=== PATIENT | female | born 2000 | race African-American/Black ===

== ENCOUNTER 2022-05-20 15:42 | Outpatient (REF) | payer OTHER, MEDICAID, SELFPAY ==
[2022-05-21 09:07] LABS: H Pylori Breath Test Negative (Negative)
== END 2022-05-20 15:43 | disposition home or self-care (01) ==
LOC: HO.LNP 15:42
PROVIDERS: Visit Provider Physician Assistant
DX: A04.8 Other specified bacterial intestinal infections (principal)
CPT/HCPCS: 83013

== ENCOUNTER 2022-07-20 13:29 | Outpatient (REF) | payer OTHER, MEDICAID, SELFPAY ==
[2022-07-20 13:49] LABS: MANUAL DIFF FLAG NO
[2022-07-20 14:03] LABS: Basophils Percent Auto 0.6 % (0-2); Eosinophils Percent Auto 0.8 % (0-4); Hematocrit 37.6 % (37.0-47.0); Hemoglobin 12.1 g/dl (12.0-16.0); Imm Gran Abs Auto 0.01 X10*3/uL (0.00-0.03); Imm Gran Pct Auto 0.2 % (0.0-0.4); Lymphocytes Percent Auto 41.2 % (20-40); Mean Corpuscular HGB Conc 32.2 g/dl (31.0-35.0); Mean Corpuscular Hemoglobin 30.9 pg (27.0-33.0); Mean Corpuscular Volume 95.9 fL (80.0-98.0); Mean Platelet Volume 10.6 fL (9.4-12.3); Monocytes Absolute Auto 0.3 X10*3/uL (0.1-1.2); Monocytes Percent Auto 6.6 % (2-11); Neutrophils Absolute Auto 2.5 x10*3/uL (2.0-8.3); Neutrophils Percent Auto 50.6 % (45-73); Platelet Count 239 X10*3/uL (160-400); Red Blood Count 3.92 X10*6/uL (4.20-5.50); White Blood Count 4.9 X10*3/uL (4.8-10.8)
[2022-07-20 14:20] LABS: Alanine Aminotransferase 17 U/L (0-31); Albumin Level 4.4 g/dL (3.5-5.0); Alkaline Phosphatase 73 U/L (39-117); Anion Gap 12 (12-20); Aspartate Amino Transferase 20 U/L (5-31); Bilirubin Total 0.7 mg/dL (0.0-1.0); Blood Urea Nitrogen 8 mg/dL (9-16); Calcium 9.9 mg/dL (8.4-10.2); Carbon Dioxide 26 mmol/L (22-29); Chloride 107 mmol/L (96-108); Estimated Glomerular Filt Rate > 60; Glucose Random 91 mg/dL (60-115); Potassium 4.3 mmol/L (3.3-5.1); Sodium 141 mmol/L (135-145); Total Protein 7.5 g/dL (6.5-8.0)
[2022-07-20 14:45] LABS: Thyroid Stimulating Hormone 1.15 uIU/mL (0.32-4.0)
[2022-07-24 17:31] LABS: Vitamin D 25-OH, D2 <4 ng/mL; Vitamin D 25-OH, D3 19 ng/mL; Vitamin D 25-OH, Total 19 ng/mL (30-100)
== END 2022-07-20 13:30 | disposition home or self-care (01) ==
LOC: HO.LAB 13:29
PROVIDERS: Visit Provider Physician Assistant
DX: K59.09 Other constipation (principal); K58.9 Irritable bowel syndrome, unspecified; R10.9 Unspecified abdominal pain; G89.29 Other chronic pain
CPT/HCPCS: 36415; 80053; 82306; 84443; 85025

== ENCOUNTER 2022-07-22 08:16 | Outpatient (REF) | payer OTHER, MEDICAID, SELFPAY ==
--- NOTE | ~2022-07-22 | CT_ITS ---
EXAMINATION: CT ABDOMEN AND PELVIS WITH CONTRAST CLINICAL INFORMATION: Abdominal pain COMPARISON: None TECHNIQUE: Multidetector volumetric images were obtained from the superior aspect of the liver through the pubic symphysis following administration 85 mL of Omnipaque 350 intravenous contrast. Sagittal and coronal reformatted images were obtained on the technologist's workstation. Oral contrast: Yes This CT examination was performed using dose optimization techniques as appropriate, variously including the following: *Automated exposure control *Adjustment of mA and/or kV according to patient size (this includes techniques or standardized protocols for targeted exams where dose is matched to indication/reason for exam; i.e. extremities or head) *Use of iterative reconstruction technique DLP: 3 6 by mGy-cm FINDINGS: LUNG BASES: The visualized lung bases are unremarkable. LIVER, GALLBLADDER, AND BILIARY TREE: The liver is normal in size, shape, and attenuation. No focal hepatic lesion or biliary ductal dilatation is present. The gallbladder is unremarkable with no evidence of radiopaque gallstones, gallbladder wall thickening, or obvious pericholecystic inflammatory changes. PANCREAS: Unremarkable. SPLEEN: Unremarkable. ADRENAL GLANDS: Unremarkable. KIDNEYS AND URETERS: The kidneys are normal in size, shape, and attenuation. No hydronephrosis, hydroureter, or calculi seen. There is a 5 mm low-attenuation lesion in the central left kidney probably representing a small cyst. No imaging follow-up. No perinephric stranding. BLADDER: Unremarkable. GASTROINTESTINAL TRACT: There is stool throughout the colon questionable for mild constipation. The small and large bowel are otherwise unremarkable. The appendix is unremarkable. ABDOMINAL WALL: No significant hernia is appreciated. LYMPH NODES: Normal. VASCULAR: Unremarkable. PELVIC VISCERA: Unremarkable. OSSEOUS STRUCTURES: Unremarkable. CT/CT abdomen pelvis w IV con IMPRESSION: No acute findings. Probable small left renal cyst. Stool throughout the colon suggestive of mild patient. Fleischner guidelines were followed.
[2022-07-22] MEDS: iohexoL 350 MG/ML 100 ML INFUS..BTL 85 ML IV (09:02)
== END 2022-07-22 08:17 | disposition home or self-care (01) ==
LOC: HO.CT 08:16
PROVIDERS: PCP Internal Medicine; Visit Provider Physician Assistant
DX: R10.9 Unspecified abdominal pain (principal); G89.29 Other chronic pain
CPT/HCPCS: 74177; Q9967

== ENCOUNTER → 2022-11-22 08:56 | Outpatient (BNVA) | payer OTHER, MEDICAID, SELFPAY | PROVIDERS: PCP Internal Medicine; Visit Provider Physician Assistant | DX: Z13.89 Encounter for screening for other disorder (principal) ==

== ENCOUNTER 2024-09-18 14:57 | Outpatient (AMB) | payer OTHER, SELFPAY ==
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
[2024-09-18 15:04] VITALS: BP 105/59; PULSE 78; BMI 26.4
== END 2024-09-18 15:34 | disposition home or self-care (01) ==
PROVIDERS: PCP Internal Medicine; Visit Provider Internal Medicine
DX: K58.9 Irritable bowel syndrome, unspecified (principal); K59.09 Other constipation
CPT/HCPCS: 99213

== ENCOUNTER 2025-01-17 14:58 | Outpatient (AMB) | payer OTHER, SELFPAY ==
--- OUTSIDE RECORDS SUMMARY | 2025-01-17 15:00 | XMS_ITS | Clinical Summary ---
Author Organization [facility] Address [address] [place] [address] Care Team Providers Care Restaurant Busser Name Role Phone Unavailable Primary Care Provider Unavailabl e Social History Tobacco Use Types Packs/Day Years Used Date Smoking Tobacco: Never Assessed Comments Unknown Sex and Gender Information Value Date Recorded Sex Assigned at Not on file Legal Sex Female 2:50 AM EST Gender Identity Not on file Sexual Orientation Not on file Plan of Treatment Health Maintenance Due Date Last Done Comments HPV Vaccines (1 - 3-dose series) 2014 DTaP,Tdap,and Td Vaccines (1 - Tdap) 2018 Hepatitis B Vaccines (1 of 3 - 19+ 3-dose series) 2018 Cervical Cancer Screening: P ap Smear 2020 COVID-19 Vaccine ( - 2023-2 5 season) 2024 Influenza Vaccine (Season Ended) 2025 HIB Vaccines Aged Out No longer eligi ble based on patient's age to complete this topic Hepatitis A Vaccines Aged Out No long er eligible based on patient's age to complete this topic IPV Vaccines Aged Out No longer eligi ble based on patient's age to complete this topic MMR Vaccines Aged Out No longer eligi ble based on patient's age to complete this topic Meningococcal ACWY Vaccine Aged Out N o longer eligible based on patient's age to complete this topic Meningococcal B Vaccine Aged Out No l onger eligible based on patient's age to complete this topic Pneumococcal Vaccine: Pediat rics (0 to 5 Years) and At-Risk Patients (6 to 64 Years) Aged Out No longer eligible b ased on patient's age to complete this topic RSV Immunization Patients Un michael 20 months Aged Out No longer eligible b ased on patient's age to complete this topic Varicella Vaccines Aged Out No longer eligible based on patient's age to complete this topic
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
[2025-01-17 15:02] VITALS: BP 107/56; PULSE 75; BMI 26.0
== END 2025-01-17 15:36 | disposition home or self-care (01) ==
LOC: HO.HGI 14:58
PROVIDERS: PCP Internal Medicine; Visit Provider Internal Medicine
DX: K58.9 Irritable bowel syndrome, unspecified (principal); K59.09 Other constipation; R13.10 Dysphagia, unspecified
CPT/HCPCS: 99213

== ENCOUNTER → 2025-01-17 14:58 | Outpatient (BNVA) | payer OTHER, SELFPAY | PROVIDERS: PCP Internal Medicine; Visit Provider Internal Medicine ==

== ENCOUNTER 2025-04-21 09:51 | Outpatient (AMB) | payer OTHER, SELFPAY ==
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
--- OUTSIDE RECORDS SUMMARY | 2025-04-21 10:37 | XMS_ITS | Clinical Summary ---
Author Organization [facility] Address [address] [place] [address] Care Team Providers Care Front Office Medical Assistant Name Role Phone Unavailable Primary Care Provider [...] Screening: P ap Smear 2020 COVID-19 Vaccine (1 - 2023-2 5 season) 2024 Depression Screening 09/04/2024 Influenza Vaccine (#1) 2025 HIB Vaccines Aged Out No longer [...] 5 Years) and At-Risk Patients (6 to 49 Years) Aged Out No longer eligible b ased on patient's age to complete this topic RSV Immunization Patients Un michael 20 months Aged Out No longer eligible b ased on patient's age to complete this topic Varicella Vaccines Aged Out No longer eligible based on patient's age to complete this topic
== END 2025-04-21 13:25 | disposition home or self-care (01) ==
LOC: HO.HGI 09:51
PROVIDERS: PCP Internal Medicine; Visit Provider Internal Medicine
DX: K58.9 Irritable bowel syndrome, unspecified (principal); K59.09 Other constipation; R13.10 Dysphagia, unspecified
CPT/HCPCS: 99213

== ENCOUNTER 2025-05-07 08:45 | Outpatient (REF) | payer OTHER, SELFPAY ==
--- NOTE | ~2025-05-07 | FL_ITS ---
EXAMINATION: XR FLUOROSCOPY BARIUM SWALLOW WITH AIR CLINICAL INFORMATION: GERD type symptoms, dysphagia to pills. Feels like things get stuck in esophagus. COMPARISON: None TECHNIQUE: Fluoroscopic air contrast barium swallow examination was performed utilizing standard techniques with thin and thick barium and effervescent granules. Numerous spot images were obtained. Several fluoroscopic image hold cine sequences were also obtained. FINDINGS: BARIUM SWALLOW: Lateral cine images of the oropharynx and hypopharynx demonstrate normal swallow mechanism with normal epiglottic inversion and soft palate elevation. No laryngeal penetration, glottic or subglottic aspiration identified. No nasopharyngeal reflux present. Hypopharyngeal structures appear normal without evidence of mass or diverticulum. There was no significant cricopharyngeal achalasia. Dual and single contrast images of the esophagus demonstrate normal caliber, contour, and mucosal pattern. No evidence of stricture, mass, or ulcerations identified. Esophageal peristalsis was mildly disordered. No evidence of hiatus hernia identified. There was significant gastroesophageal reflux noted during the examination to the level of the thoracic inlet. Dual contrast and single contrast images of the stomach demonstrated normal contour. No evidence of mass or gross ulceration. There was mild diffuse thickening of the areae gastricae present. Normal gastric rugal folds. Contrast freely passed into the gastric antrum and duodenal bulb without delay. FLUOROSCOPY TIME: 1 minute, 51 seconds Number of Spot Images:10 Number of cines obtained: 3 DOSE AREA PRODUCT: 2382 uGy-m2 (microgray-meter squared) FL/FL barium swallow with air IMPRESSION: 1. No evidence of hiatus hernia. 2. Episodic gastroesophageal reflux present to the level of the thoracic inlet. 3. Mildly disordered esophageal peristalsis. 4. Mild thickening of the area gastricae of the stomach noted, possibly representing mild gastritis. Recommend correlating with EGD. Electronically signed by: Nicholas Gill MD 05/07/2025 09:57 AM EDT RP
--- OUTSIDE RECORDS SUMMARY | 2025-05-07 09:12 | XMS_ITS | Clinical Summary ---
Author Organization [facility] Address [address] [place] [address] Care Team Providers Care Telephone Sex Worker Name Role Phone Unavailable Primary Care Provider [...] Cervical Cancer Screening: P ap Smear 2020 Depression Screening 09/04/2024 COVID-19 Vaccine ( - 2023-2 5 season) 2025 Influenza Vaccine (#1) 2025 HIB Vaccines Aged [...]
== END 2025-05-07 08:46 | disposition home or self-care (01) ==
LOC: HO.XRAY 08:45
PROVIDERS: PCP Internal Medicine; Visit Provider Internal Medicine
DX: R13.10 Dysphagia, unspecified (principal)
CPT/HCPCS: 74221

== ENCOUNTER → 2025-05-07 08:47 | Outpatient (BNV) | payer OTHER, SELFPAY | PROVIDERS: PCP Internal Medicine; Visit Provider Radiology Diagnostic Radiology | DX: K21.9 Gastro-esophageal reflux disease without esophagitis (principal) | CPT/HCPCS: 74221 ==

== ENCOUNTER 2025-06-11 09:06 | Outpatient (AMB) | payer OTHER, SELFPAY ==
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
[2025-06-11 09:11] VITALS: BP 127/66; PULSE 93; BMI 27.0
== END 2025-06-11 10:09 | disposition home or self-care (01) ==
LOC: HO.HGI 09:07
PROVIDERS: PCP Internal Medicine; Visit Provider Internal Medicine
DX: K58.9 Irritable bowel syndrome, unspecified (principal); K59.09 Other constipation; R13.10 Dysphagia, unspecified
CPT/HCPCS: 99214

== ENCOUNTER 2025-08-12 08:53 | Day surgery (SDC) | payer OTHER, SELFPAY ==
--- NOTE | 2025-08-08 11:59 | HO.ANESPROP2 ---
Documented by User: Tamela Lara NP 08/08/25 11:59 HPI - Anesthesia Eval Consult details Narrative: 24yo F for Upper Endoscopy PMF Active Problems Active Problems: All Active Problems Pill dysphagia (Acute) Irritable bowel syndrome (Acute) Vitamin D deficiency, unspecified (Acute) Chronic abdominal pain (Acute) Chronic constipation (Acute) Acid reflux (Acute) Past Medical History Medical History IBS (irritable bowel syndrome) GERD (gastroesophageal reflux disease) Seasonal allergies Pill dysphagia Constipation Migraines ADD (attention deficit disorder) Adjustment disorder with anxiety Family History Family History Father HTN (hypertension) Diabetes Sister Gastroparesis Maternal Grandmother CHT (congenital hypothyroidism) Emphysema lung COPD (chronic obstructive pulmonary disease) Asthma Surgical History Surgical History H/O wisdom tooth extraction Social History Social History Household Members: Family Alcohol intake: current Alcohol intake frequency: a few times a week Patient Tobacco Use Status: Never used Tobacco Use of substances other than those prescribed or required for medical reasons: No Are you DNR?: No Advance Directives: No Advance Directives Information Provided: Yes Current occupational status: employed Current occupation: [employer] Allergies Allergy/AdvReac Type Severity Reaction Status Date / Time No Known Allergies Allergy Verified 08/12/25 09:49 Home Medications ?Medication ?Instructions ?Recorded ?Confirmed ?Last Taken ?Type fluticasone propionate 50 1 spray intranasal Q12H 05/03/22 08/12/25 Unknown History mcg/actuation nasal spray,suspension (Flonase Allergy Relief) albuterol sulfate 90 mcg/actuation 2 puff inhalation BID PRN wheezing 09/18/24 08/12/25 Unknown History aerosol inhaler fexofenadine 60 mg tablet (Abbi 60 mg PO BID 09/18/24 08/12/25 Unknown History Allergy) sennosides 8.6 mg-docusate sodium 2 tab PO QPM 09/18/24 08/12/25 Unknown History 50 mg tablet (Stool Softener-Laxative) desogestrel 0.15 mg-ethinyl 1 tab PO DAILY 01/17/25 08/12/25 Unknown History estradiol 0.03 mg tablet (Enskyce) dextroamphetamine-amphetamine 5 mg 1 tab PO DAILY 01/17/25 08/12/25 Unknown History tablet dextroamphetamine-amphetamine ER 1 cap PO QAM 08/08/25 08/12/25 Unknown History 15 mg 24hr capsule,extend release Assessment and Plan Assessment Anesthesia Assessment: Chart Reviewed Documented by User: Sherri Moore MD 08/12/25 10:22 [facility] Past Medical History Medical History IBS (irritable bowel syndrome) GERD (gastroesophageal reflux disease) Seasonal allergies Pill dysphagia Constipation Migraines ADD (attention deficit disorder) Adjustment disorder with anxiety Family History Family History Father HTN (hypertension) Diabetes Sister Gastroparesis Maternal Grandmother CHT (congenital hypothyroidism) Emphysema lung COPD (chronic obstructive pulmonary disease) Asthma Family history of problems with anesthesia: No Surgical History Surgical History H/O wisdom tooth extraction History of Problems with Anesthesia: No Social History Social History Household Members: Family Alcohol intake: current Alcohol intake frequency: a few times a week Patient Tobacco Use Status: Never used Tobacco Use of substances other than those prescribed or required for medical reasons: No Are you DNR?: No Advance Directives: No Advance Directives Information Provided: Yes Current occupational status: employed Current occupation: [employer] Allergies Allergy/AdvReac Type Severity Reaction Status Date / Time No Known Allergies Allergy Verified 08/12/25 09:49 Home Medications ?Medication ?Instructions ?Recorded ?Confirmed ?Last Taken ?Type fluticasone propionate 50 1 spray intranasal Q12H 05/03/22 08/12/25 Unknown History mcg/actuation nasal spray,suspension (Flonase Allergy Relief) albuterol sulfate 90 mcg/actuation 2 puff inhalation BID PRN wheezing 09/18/24 08/12/25 Unknown History aerosol inhaler fexofenadine 60 mg tablet (Abbi 60 mg PO BID 09/18/24 08/12/25 Unknown History Allergy) sennosides 8.6 mg-docusate sodium 2 tab PO QPM 09/18/24 08/12/25 Unknown History 50 mg tablet (Stool Softener-Laxative) desogestrel 0.15 mg-ethinyl 1 tab PO DAILY 01/17/25 08/12/25 Unknown History estradiol 0.03 mg tablet (Enskyce) dextroamphetamine-amphetamine 5 mg 1 tab PO DAILY 01/17/25 08/12/25 Unknown History tablet dextroamphetamine-amphetamine ER 1 cap PO QAM 08/08/25 08/12/25 Unknown History 15 mg 24hr capsule,extend release Exam Airway Mallampati Class: II TM Dist: >3cm Neck ROM: Full Heart: rrr Lungs: cta Assessment and Plan Assessment Anesthesia Assessment: Anesthesia Plan Discussed Final Anesthetic Review Family History of Problems with Anesthesia: No History of Problems with Anesthesia: No NPO: Yes ASA Class: II Final Preanesthetic Review: No Changes in Pt Med Stat, Meds/Allgs Chart Reviewed, Consent Obtained/Reviewed and Anes Risks/Benef Reviewed Patient Risk: Low Procedure Risk: Low Anesthetic Plan Anesthetic Plan: MAC: Disposition: Standard PACU
[2025-08-08 13:18] VITALS: BMI 27.0
[2025-08-12 09:55] VITALS: BMI 26.0
[2025-08-12 10:05] LABS: UPreg QC Valid YES
--- NOTE | 2025-08-12 10:06 | MHC.SHP ---
Pre-Procedural Eval Section A - 24 Hr Update-Section A only Date of Service: 08/12/25 Section B - Complete if H&P > 30 days Chief Complaint: Dysphagia, unspecified Details of Present Illness: H/O wisdom tooth extraction Family History Father HTN (hypertension) Diabetes Sister Gastroparesis Maternal Grandmother CHT (congenital hypothyroidism) Emphysema lung COPD (chronic obstructive pulmonary disease) Asthma Present Medications: see Short Stay Collaborative assessment Allergies: Allergies Allergy/AdvReac Type Severity Reaction Status Date / Time No Known Allergies Allergy Verified 08/12/25 09:49 Review of Systems Review of Systems Comment: Ten point ROS negative Exam Exam Comment: Gen appear: No acute distress HEENT: no icterus Chest: No overt resp distress Abd: soft, nontender, nondistended Psych: Stable affect, answering questions appropriately Neuro: A/Ox3 noted to move all extremities spontaneously Ext: no peripheral edema Plan Diagnosis/Plan: Unchanged I have reviewed the history and physical and performed a pertinent physical examination on my patient. No changes have occurred unless specified. Time Spent With Patient Time: Total time managing care of this patient today ____ minutes.
[2025-08-12 10:10] VITALS: BP 116/65; PULSE 72; RESP 14; TEMP 36.5; O2SAT 99
[2025-08-12] MEDS: Lactated Ringers 1,000 ML 100 ML IVCONT (10:17)
--- NOTE | 2025-08-12 11:14 | P.OP_ITS ---
Operative Note Operative Note Date of Service: 08/12/25 Narrative: Procedure: Esophagogastroduodenoscopy Endoscopist: Steffany Lincoln MD Indication: Dysphagia Anesthesia Provider: Dr Yusuf Anesthesia Type: MAC Instrument: Olympus GIF-H190 and GIF [id number] ?? EGD Procedure:?? The procedure, indications, preparation and potential complications were rev iewed with the patient, who indicated understanding and gave written informed consent to proceed. A physical exam was performed. The endoscope was introduced through the mouth, and advanced to the second part of duodenum. The mucosa was carefully examined on slow withdrawal of the endoscope. The patient tolerated the procedure well. There were no immediate complications.? 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 The scope was then switched out to XP scope which traversed through the web easily. A Savary wire was passed through the biopsy channel and left in the antrum. The upper esophagus was dilated to 11 mm. The scope and wire was withdrawn. The regular gastroscope was then introduced without any difficulty. EGD Findings:? * Esophagus:? Heterotopic patch of gastric mucosa noted in the upper esophagus. Remaining mucosa was normal in the entire esophagus. The Z line was at 39 cm. Middle and lower esophagus forceps biopsies were obtained to rule out eosinophilic esophagitis. * Stomach:? Normal mucosa was noted in the stomach. Retroflexion was performed in the cardia. * Duodenum:? Normal mucosa was noted in the whole of the examined duodenum. Additional intervention: Soft tip Savary wire was introduced through the biopsy channel of the gastroscope and advanced to the antrum. ?The gastroscope was then backed out. ?Savary Smitha bougie was advanced over the guidewire and the esophagus was dilated from 11 to 14 mm with resistance felt (see details above). ?On relook, small tear was noted in the web confirming succcessful interruption. ? EGD Impressions:? * Esophageal web (dilation) * Inlet patch * Normal esophagus * Normal stomach * Normal duodenum ?? Recommendations:?? * Follow biopsy results. Our office will call or send a letter with results within 7-10 days. * Avoid NSAIDs. * Repeat EGD in a few months for updilation unless patient has complete symptom resolution. Above has been reviewed with the patient.
[2025-08-12 11:22] VITALS: BP 88/45; PULSE 88; RESP 12; TEMP 36.9; O2SAT 98
[2025-08-12 11:35] VITALS: BP 100/57; PULSE 73; RESP 14; TEMP 36.6; O2SAT 98
== END 2025-08-12 12:03 | disposition home or self-care (01) ==
PROVIDERS: Nurse Practitioner; PCP Internal Medicine; Visit Provider Internal Medicine
PROC: 0DJ08ZZ Inspection of Upper Intestinal Tract, Via Natural or Artificial Opening Endoscopic (ICD-10-PCS; CPT 43235; principal; 2025-08-12 11:00)
DX: R13.10 Dysphagia, unspecified (principal); K58.9 Irritable bowel syndrome, unspecified; K59.09 Other constipation; Q39.4 Esophageal web
CPT/HCPCS: 43239; 43248; 81025; 88305; C1769; J2003; J2704

== ENCOUNTER → 2025-08-12 08:53 | Outpatient (BNV) | payer OTHER, SELFPAY | PROVIDERS: PCP Internal Medicine; Visit Provider Internal Medicine | DX: R13.10 Dysphagia, unspecified (principal) | CPT/HCPCS: 43239 ==

== ENCOUNTER 2025-08-27 14:26 | Outpatient (AMB) | payer OTHER, SELFPAY ==
--- OUTSIDE RECORDS SUMMARY | 2025-08-27 14:27 | XMS_ITS | Clinical Summary ---
Author Organization [facility] Address [address] [place] [address] Care Team Providers Care Oil Sprayer Name Role Phone Unavailable Primary Care Provider [...] Smear 2020 Depression Screening 09/04/2024 COVID-19 Vaccine (1 - 2024-2 6 season) 2025 Influenza Vaccine (#1) 2025 RSV Immunization Adult Patie nts (1 - 1-dose 75+ series) 2074 HIB Vaccines Aged Out No longer eligi [...]
--- OUTSIDE RECORDS SUMMARY | 2025-08-27 14:27 | XMS_ITS | Continuity of Care Document ---
Author Organization [facility], Later [facility] Address [address] [place] [id number] Insurance Providers Payer Plan Claims Address Claims Phone Policy Number Group Number Relation Employer Guarantor Name Guarantor Guarantor Address Guarantor Phone [employer] [id number] Self KALE MCCARTNEY [address] [place] [id number] [employer] NON HMO PLANS [id number] Other Unknown Unknown [facility] [id number] Self KALE MCCARTNEY [address] [place] [phone] Problems Condition ICD9 code ICD10 code SNOMED code Start Date End Date S tatus Encounter for screening for other metabolic disorders Z13.228 Results No Results Allergies, adverse reactions, alerts No known allergies and adverse reactions Medications No administered medications reported Vital Signs No vital signs reported Social History No smoking Hx information available
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
== END 2025-08-27 15:05 | disposition home or self-care (01) ==
LOC: HO.HGI 14:26
PROVIDERS: PCP Internal Medicine; Visit Provider Internal Medicine
DX: R13.10 Dysphagia, unspecified (principal); Q39.4 Esophageal web; K58.9 Irritable bowel syndrome, unspecified; K21.9 Gastro-esophageal reflux disease without esophagitis
CPT/HCPCS: 99214